=== PATIENT | male | born 1965 | race African-American/Black ===

== ENCOUNTER 2018-01-28 14:21 | Emergency (ER) | payer MEDICAID, OTHER ==
[~2018-01-28] VITALS: Ht 180.3 cm; Wt 86.0 kg
[2018-01-28] MEDS ORDERED: METF500T4 PO (14:32)
[2018-01-28] MEDS ORDERED: LIDOCAINE HCL/EPINEPHRINE 1%-EPI 1:100,000 20 ML VIAL INFIL ONE (19:45)
[2018-01-28] MEDS ORDERED: IBUPROFEN 800MG TABLET PO ONE (19:45)
[2018-01-28] MEDS ORDERED: LIDOCAINE 1%/EPI 1:200,000 10 ML VIAL IJ ONE (20:00)
[2018-01-28 20:39] VITALS: BP 137/100
== END 2018-01-28 20:52 | disposition home or self-care (01) ==
LOC: ER 17:42
DX: S01.511A Laceration without foreign body of lip, initial encounter (principal); E11.9 Type 2 diabetes mellitus without complications; F17.210 Nicotine dependence, cigarettes, uncomplicated; F12.10 Cannabis abuse, uncomplicated; Y04.0XXA Assault by unarmed brawl or fight, initial encounter; Y93.89 Activity, other specified; Y92.018 Other place in single-family (private) house as the place of occurrence of the external cause
CPT/HCPCS: 12011; 99283; Z7610; J3490